=== PATIENT | female | born 1965 | race Hispanic/Latino ===

== ENCOUNTER 2021-10-08 03:45 | Emergency (ER) | payer MEDICARE ==
[2021-10-08 05:07] LABS: Basophils # (Auto) 0.2 K/mm3 (0.0-0.1); Basophils % (Auto) 1.1 % (0.0-1.8); Eosinophils # (Auto) 0.2 K/mm3 (0.0-0.4); Eosinophils % (Auto) 1.2 % (0.0-4.3); Hematocrit 38.5 % (30.3-42.9); Hemoglobin 12.8 gm/dl (10.1-14.3); Lymphocytes # (Auto) 1.9 K/mm3 (1.2-5.4); Lymphocytes % (Auto) 12.7 % (13.4-35.0); Mean Corpuscular HGB Conc 33 % (30-34); Mean Corpuscular Volume 93 fl (79-97); Monocytes # (Auto) 0.7 K/mm3 (0.0-0.8); Monocytes % (Auto) 4.9 % (0.0-7.3); Platelet Count 383 K/mm3 (140-440); Red Blood Count 4.15 M/mm3 (3.65-5.03); Red Cell Distribution Width 13.1 % (13.2-15.2)
[2021-10-08 05:21] LABS: Alanine Aminotransferase 14 units/L (7-56); Albumin 3.6 g/dL (3.9-5); BUN/Creatinine Ratio 16; Blood Urea Nitrogen 29 mg/dL (7-17); Calcium 9.5 mg/dL (8.4-10.2); Hemolysis Index 8
[2021-10-08] MEDS ORDERED: KETOROLAC 10 MG TAB PO ONE (05:27)
--- NOTE | 2021-10-08 05:54 | Emergency Department Report ---
ED Chest Pain HPI - General Chief Complaint: Chest Pain Stated Complaint: CHEST PAIN Time Seen by Provider: 10/08/21 04:10 Source: patient Mode of arrival: Ambulatory Limitations: No Limitations - History of Present Illness Initial Comments: This patient presents to the emergency department for evaluation of chest pain wish he had been experiencing for the past this. Patient has a history of cardiac disease and was concerned that this pain may have been a result of her cardiac disease. The patient says that the pain is localized to the left parasternal area and is described as sharp in intensity, rated at 6/10 on the pain scale. Pain is worsened by deep breathing and movement. There is no radiation. She denies nausea, diaphoresis, applications, or shortness of breath. Patient took an aspirin prior to arrival in the emergency department. She ass isted her pain was partially relieved with,tramadol which she takes for chronic knee pain. MD Complaint: chest pain -: days(s) Severity scale (0 -10): 5 - Related Data Previous Rx's Medication Instructions Recorded Last Taken Type Furosemide [Lasix] 20 mg PO BID #60 tablet 06/08/18 Unknown Rx Lisinopril [Zestril TAB] 2.5 mg PO QDAY #30 tab 06/08/18 Unknown Rx carvediloL [Coreg] 3.125 mg PO BID #60 tablet 06/08/18 Unknown Rx Ketorolac [Toradol] 10 mg PO Q6H PRN #14 tab 10/08/21 Unknown Rx Allergies Allergy/AdvReac Type Severity Reaction Status Date / Time No Known Allergies Allergy Verified 06/06/18 20:26 Heart Score - HEART Score History: Slightly suspicious EKG: Normal Age: 45-65 Risk factors: > 3 risk factors or hx of atherosclerotic disease Troponin: < normal limit HEART Score: 3 - EKG Read Time Time EKG Completed: 04:10 EKG Read Time: 04:15 ED Review of Systems ROS: Stated complaint: CHEST PAIN Other details as noted in HPI Comment: All other systems reviewed and negative Constitutional: denies: chills, fever Eyes: denies: eye pain, eye discharge, vision change ENT: denies: ear pain, throat pain Respiratory: denies: cough, shortness of breath Cardiovascular: chest pain. denies: palpitations, edema Endocrine: no symptoms reported. denies: excessive sweating, flushing Gastrointestinal: denies: abdominal pain, nausea, vomiting Musculoskeletal: denies: back pain Skin: denies: rash, lesions Neurological: denies: headache, weakness, numbness Psychiatric: anxiety. denies: depression, homicidal thoughts, suicidal thoughts Hematological/Lymphatic: denies: easy bleeding ED Past Medical Hx - Past Medical History Hx Hypertension: Yes Hx Congestive Heart Failure: Yes Hx Arthritis: Yes Hx COPD: Yes - Surgical History Hx Appendectomy: Yes Additional Surgical History: Bilateral salpingo-oophorectomy, abdominal mass removal, - Social History Smoking Status: Current Every Day Smoker - Medications Home Medications: Home Medications Medication Instructions Recorded Confirmed Last Taken Type Furosemide [Lasix] 20 mg PO BID #60 tablet 06/08/18 Unknown Rx Lisinopril [Zestril TAB] 2.5 mg PO QDAY #30 tab 06/08/18 Unknown Rx carvediloL [Coreg] 3.125 mg PO BID #60 tablet 06/08/18 Unknown Rx Ketorolac [Toradol] 10 mg PO Q6H PRN #14 tab 10/08/21 Unknown Rx ED Physical Exam - General Limitations: No Limitations General appearance: alert, anxious - Head Head exam: Present: atraumatic, normocephalic - Eye Eye exam: Present: normal appearance, PERRL, EOMI - ENT ENT exam: Present: mucous membranes moist - Neck Neck exam: Present: normal inspection, full ROM. Absent: tenderness, lymphadenopathy - Respiratory Respiratory exam: Present: normal lung sounds bilaterally, other (Along the left parasternal border there is no crepitus or emphysema.). Absent: respiratory distress, wheezes, rales - Cardiovascular Cardiovascular Exam: Present: regular rate, normal rhythm. Absent: normal heart sounds, systolic murmur - Rectal Rectal exam: Present: deferred - Extremities Exam Extremities exam: Present: normal inspection, pedal edema. Absent: calf tenderness - Back Exam Back exam: Present: normal inspection, full ROM. Absent: tenderness - Psychiatric Psychiatric exam: Present: normal affect, normal mood, anxious - Skin Skin exam: Present: warm, dry ED Course Vital Signs 10/08/21 10/08/21 03:52 06:48 Temperature 98.3 F Pulse Rate 77 74 Respiratory 18 20 Rate Blood Pressure 120/61 Blood Pressure 164/73 [Right] O2 Sat by Pulse 99 98 Oximetry ED Medical Decision Making - Lab Data Result diagrams: 10/08/21 04:24 10/08/21 04:24 - EKG Data EKG shows normal: sinus rhythm (70), axis (Normal), QRS complexes (Normal except for occasional PVC) - EKG Data Interpretation: no acute changes - Radiology Data Radiology results: report reviewed, image reviewed No acute cardiopulmonary disease - Medical Decision Making In light of the fact that this patient had chest pain for several days which has been worsening it is expected that if it was secondary to her heart that she should have an elevation of her cardiac enzymes. The EKG did not show any ST segment changes. The patient had partial relief of her symptoms with tramadol that she had taken earlier. It was advised that her pain was secondary to a musculoskeletal issue. She was subsequently given a dose of Toradol and discharged with a prescription. Patient was advised to take the medicines as pr escribed and follow-up with her primary care physician is available appointment. She was asked to return to the emergency department if any problems. I had a discussion with the patient about the symptoms to us but if she had an CA. She was however told that if she ever had any symptoms that were concerning to her that she should be evaluated due to her cardiac history Critical care attestation.: If time is entered above; I have spent that time in minutes in the direct care of this critically ill patient, excluding procedure time. ED Disposition Clinical Impression: Musculoskeletal chest pain Disposition: 01 HOME / SELF CARE / HOMELESS Is pt being admited?: No Condition: Stable Instructions: Chest Wall Pain, [id number], Nonspecific Chest Pain, Adult Additional Instructions: Apply warm compress to the area several times a day. Take the medications as prescribed. Follow-up with your primary physician next available appointment. Return to the emergency department if your symptoms worsen or raise concern for further evaluation Prescriptions: Ketorolac [Toradol] 10 mg PO Q6H PRN #14 tab PRN Reason: Pain Referrals: HELEN BAUTISTA DO [Primary Care Provider] - 3-5 Days
--- NOTE | 2021-10-08 06:01 | XRay Report ---
CHEST 2 VIEWS INDICATION / CLINICAL INFORMATION: CHEST PAIN. COMPARISON: Chest x-ray 06/06/2018 FINDINGS: SUPPORT DEVICES: None. HEART / MEDIASTINUM: Borderline cardiomegaly likely accentuated by technique. LUNGS / PLEURA: Lungs clear for degree of inspiration and utilized technique. No pneumothorax. ADDITIONAL FINDINGS: No significant additional findings. IMPRESSION: 1. No active cardiopulmonary disease. Signer Name: Sourav Booker II, MD Signed: 10/08/2021 5:57 AM Workstation Name: [id number]
[2021-10-08 06:50] VITALS: BP 164/73
--- NOTE | 2021-10-09 14:20 | Electrocardiograph Report ---
[facility] Test Date: 2021-10-08 Test Time: 03:55:21 Pat Name: MAURICIO GONZALEZ Department: Room: Gender: F [employer]: MAYNOR : 1965 Requested By: ZACKERY ECHEVERRIA Order Number: [id number] Reading MD: Adelia Aragon Measurements Intervals [place] Rate: 70 P: 90 TX: 189 QRS: 88 QRSD: 107 T: 53 QT: 422 QTc: 452 Interpretive Statements Sinus rhythm Occasional ventricular premature complexes No previous ECG available for comparison Electronically Signed On 10-09-2021 14:20:37 EDT by Adelia Aragon
== END 2021-10-08 06:50 | disposition home or self-care (01) ==
LOC: ED 03:45
DX: R07.89 Other chest pain (principal); I11.0 Hypertensive heart disease with heart failure; I50.9 Heart failure, unspecified; M19.90 Unspecified osteoarthritis, unspecified site; J44.9 Chronic obstructive pulmonary disease, unspecified; Z79.899 Other long term (current) drug therapy; Z98.890 Other specified postprocedural states; F17.200 Nicotine dependence, unspecified, uncomplicated
CPT/HCPCS: 36415; 71046; 80053; 84484; 85025; 93005; 99284